=== PATIENT | male | born 1995 | race Caucasian/White ===

== ENCOUNTER 2016-05-19 20:47 | Emergency (ER) | payer BC, MEDICAID ==
[~2016-05-19] VITALS: Ht 182.9 cm; Wt 105.9 kg
[2016-05-19] MEDS ORDERED: KETOROLAC 60 MG/2 ML (TORADOL) VIAL IM ONE (22:10)
[2016-05-19 23:17] VITALS: BP 114/51
== END 2016-05-19 23:18 | disposition home or self-care (01) ==
LOC: ED 20:48
DX: J02.9 Acute pharyngitis, unspecified (principal)
CPT/HCPCS: 87070; 87651; 96372; 99283; J1885; 99282

== ENCOUNTER → 2016-06-06 | Outpatient (CLI) | payer BC, MEDICAID | LOC: EMS 21:26 | PROVIDERS: ATTEND Emergency Medicine | DX: S81.811A Laceration without foreign body, right lower leg, initial encounter (principal); W25.XXXA Contact with sharp glass, initial encounter; Y92.211 Elementary school as the place of occurrence of the external cause; R56.9 Unspecified convulsions ==

== ENCOUNTER 2016-06-08 05:13 | Emergency (ER) | payer BC, MEDICAID ==
[~2016-06-08] VITALS: Ht 182.9 cm; Wt 104.5 kg
[2016-06-08 05:15] VITALS: BP 124/74
== END 2016-06-08 05:38 | disposition home or self-care (01) ==
LOC: ED 05:19
DX: S81.811D Laceration without foreign body, right lower leg, subsequent encounter (principal); W25.XXXD Contact with sharp glass, subsequent encounter; Z48.01 Encounter for change or removal of surgical wound dressing
CPT/HCPCS: 99282

== ENCOUNTER 2016-06-15 13:49 | Emergency (ER) | payer BC, MEDICAID ==
[~2016-06-15] VITALS: Ht 200.7 cm; Wt 104.6 kg
[2016-06-15] MEDS ORDERED: VANCOMYCIN 1,000 MG in SODIUM CHLORIDE 250 ML IV ONE (15:10)
[2016-06-15 15:34] LABS: BASOPHILS % (AUTO) 0 % (0-2); EOSINOPHILS # (AUTO) 0.3 10^3uL; EOSINOPHILS % (AUTO) 3 % (0-4); LYMPHOCYTES # (AUTO) 2.4 X10^3; MEAN CORPUSCULAR HEMOGLOBIN 29.4 PG (26.0-34.0); MEAN CORPUSCULAR HGB CONC 34.6 g/dL (31.0-37.0); MEAN CORPUSCULAR VOLUME 85 FL (80-100); MEAN PLATELET VOLUME 10.5 FL (6.0-9.5); MONOCYTES # (AUTO) 1.1 X10^3; MONOCYTES % (AUTO) 11 % (3-11); NEUTROPHILS # (AUTO) 6.3 X10^3; NEUTROPHILS % (AUTO) 62 % (51-67); PLATELET COUNT 259 10^3uL (150-450); WHITE BLOOD COUNT 10.16 10^3uL (4.0-11.0)
[2016-06-15 15:47] LABS: ALBUMIN 4.2 g/dL (3.4-5.0); ANION GAP 14.1 MEQ/L (3-15); CALCULATED IONIZED CALCIUM 3.6 mg/dL (3.8-4.6); TOTAL PROTEIN 8.3 g/dL (6.4-8.5)
--- NOTE | 2016-06-15 17:09 | NUR ---
Wound borders right leg have been circled with skin marking pen.
[2016-06-15 18:16] VITALS: BP 114/34
== END 2016-06-15 18:10 | disposition home or self-care (01) ==
LOC: EDUNIT# 13:49 → ED 13:51
DX: S71.111A Laceration without foreign body, right thigh, initial encounter (principal); S81.811A Laceration without foreign body, right lower leg, initial encounter; L03.115 Cellulitis of right lower limb; W22.09XA Striking against other stationary object, initial encounter
CPT/HCPCS: 36415; 80053; 85025; 96365; 96366; 99283; J3370; J7050

== ENCOUNTER → 2016-06-17 | Outpatient (REF) ==
[~2016-06-17] MED LIST: ACET1TAB43 PO; ACET325T38 PO; ACET600C PO; ACET600C5 PO; ADV250-14 IH; ALBU2.5V4 IH; ALBU8.5H4 IH; ALBU8.5H6 IH; ALLERGY SHOT; ALLERY SHOTS; ARIP15TA3 PO; ATOM40CA PO; BENZ1LOZ MM; BISM262O27 PO; BUPR300T51 PO; CALADRYL TOP; CETI-262 PO; CETI10CA PO; CHLO118L TP; CLN.1T PO; CLON1PAT16 TD; CORTAID TOP; CYPR4TAB PO; DILT120T PO; DIPH50CA PO; DIPH50CA33 PO; DIPH50TA PO; DLT30T PO; DORN1SOL IH; DVL500TSR PO; EPI-PEN; EPIN0.3P2 IM; FLUT1DIS3 IH; FLUT1DIS3 INH; FLUT1DIS4 IH; FLUV100T3 PO; FLUV150C2 PO; FLUV25TA3 PO; FLVX50T PO; GUAI5SYR PO; GUAN1TAB17 PO; GUAN2TAB PO; GUAN4TAB2 PO; HLP5T PO; HYDR453. TOP; HYDR50CA PO; IBP800T PO; IBUP-793 PO; IBUP200C PO; LAMO25TA PO; LEVE10006 PO; LEVE250T18 PO; LEVE500T6 PO; LIPA1CAP67 PO; LISD70CA PO; MAG30ORA2 PO; MAGN400O7 PO; MAGN800O PO; MELA1TAB19 PO; MINO100C2 PO; MNTL10T PO; MONT10TA21 PO; NF-FLON16G NS; NF-FLON16G NSEACH; NPB.9O TP; OLAN10TA3 PO; OMEP20CA12; OMEP20TA33 PO; OMEP40CA36 PO; PANT40SU PO; PANT40TA3 PO; POLY255P PO; PRED10TA PO; PRED1TAB PO; QTP100T PO; QUET200T PO; QUET200T2 PO; QUET200T28 PO; QUET300T2 PO; SMV10T PO; SULF1TAB35 PO; TINACTIN TOP; TR1C15 TOP; TRAZ-28 PO; TRAZ100T92 PO; URSO250T11 PO; URSO300C3 PO; [UNRECOGNIZED DRUG - CODE] IJ; [UNRECOGNIZED DRUG - CODE] TP; [UNRECOGNIZED DRUG - OTHER]; unknown meds
[2016-06-17 17:18] LABS: HEPATITIS B SURFACE ANTIGEN C Negative
== END ==
LOC: LAB 12:01
PROVIDERS: ATTEND Internal Medicine
DX: Z77.21 Contact with and (suspected) exposure to potentially hazardous body fluids (principal)
CPT/HCPCS: 86803; 87340

== ENCOUNTER 2016-07-14 22:18 | Emergency (ER) | payer BC, MEDICAID ==
[~2016-07-14] VITALS: Ht 182.9 cm; Wt 104.5 kg
--- OUTSIDE RECORDS SUMMARY | 2016-07-14 22:22 | XMS REPORT | Continuity of Care Document ---
Author Author Keyanna Moreno Keyanna Address Unknown Phone Unavailable Care Team Providers Care Nurses' Aide Name Role Phone [employer] Unavailable Unavailable Problems Medications Allergies, Adverse Reactions, Alerts Immunizations Results Vital Signs Encounters Procedures Plan of Care Social History Assessment and Plan Family History Value Date Source Advance Directives Order Name Results Value Date Source
--- OUTSIDE RECORDS SUMMARY | 2016-07-14 22:23 | XMS REPORT | Continuity of Care Document ---
Author Author Keyanna Moreno Keyanna Address Unknown Phone Unavailable Care Team Providers Care Igniter Capper Name Role Phone [employer] Unavailable Unavailable Problems Medications Allergies, Adverse Reactions, Alerts Immunizations Results Vital Signs Encounters Procedures Plan of Care Social History Assessment and Plan Family History Value Date Source Advance Directives Order Name Results Value Date Source
[2016-07-14 22:29] VITALS: BP 127/75
[2016-07-14] MEDS ORDERED: CETI10TA20 PO (22:41)
== END 2016-07-14 22:56 | disposition home or self-care (01) ==
LOC: ED 22:19
DX: S00.03XA Contusion of scalp, initial encounter (principal); W22.09XA Striking against other stationary object, initial encounter; Y93.89 Activity, other specified; Y92.009 Unspecified place in unspecified non-institutional (private) residence as the place of occurrence of the external cause
CPT/HCPCS: 99281; 99282

== ENCOUNTER 2016-07-20 21:08 | Emergency (ER) | payer BC, MEDICAID ==
[~2016-07-20] VITALS: Ht 200.7 cm; Wt 111.4 kg
[2016-07-20] MEDS ORDERED: LORazepam 2 MG/ML (ATIVAN) 1 ML VIAL IV ONE (21:10)
[2016-07-20] MEDS ORDERED: SODIUM CHLORIDE FLUSH 10 ML SYR ONE (21:10)
--- OUTSIDE RECORDS SUMMARY | 2016-07-20 21:14 | XMS REPORT | Continuity of Care Document ---
Author Author Keyanna Moreno Keyanna Address Unknown Phone Unavailable Care Team Providers Care Division Road Supervisor Name Role Phone [employer] Unavailable Unavailable Problems Medications Allergies, Adverse Reactions, Alerts Immunizations Results Vital Signs Encounters Procedures Plan of Care Social History Assessment and Plan Family History Value Date Source Advance Directives Order Name Results Value Date Source
[2016-07-20] MEDS ORDERED: diphenhydrAMINE 50 MG/ML INJ (BENADRYL) IV ONE (21:15)
[2016-07-20] MEDS ORDERED: DEXAMETHASONE 4 MG/ML (DECADRON) 5ml VIAL IV ONE (21:15)
[2016-07-20] MEDS ORDERED: FAMOTIDINE IV 20 MG in SODIUM CHLORIDE VIAL (PF) 10 ML IV ONE (21:15)
--- NOTE | 2016-07-20 21:20 | NUR ---
ABHISHEK GARCIA AND ASHISH IN PTS ROOM AND PT HAD A SEIZURE LASTED APPROX 25 SECONDS. WAS THRASHING IN BED SEIZURE GENERALIZED AND GRAND MAL
[2016-07-20] MEDS ORDERED: SODIUM CHLORIDE FLUSH 3 ML SYR IV ONE (21:35)
[2016-07-20] MEDS ORDERED: SODIUM CHLORIDE FLUSH 10 ML SYR IV PRN (21:35)
[2016-07-20 21:57] LABS: BASOPHILS % (AUTO) 0 % (0-2); EOSINOPHILS # (AUTO) 0.3 10^3uL; EOSINOPHILS % (AUTO) 3 % (0-4); LYMPHOCYTES # (AUTO) 1.9 X10^3; MEAN CORPUSCULAR HEMOGLOBIN 29.6 PG (26.0-34.0); MEAN CORPUSCULAR HGB CONC 34.4 g/dL (31.0-37.0); MEAN CORPUSCULAR VOLUME 86 FL (80-100); MEAN PLATELET VOLUME 10.1 FL (6.0-9.5); MONOCYTES % (AUTO) 9 % (3-11); NEUTROPHILS # (AUTO) 7.9 X10^3; NEUTROPHILS % (AUTO) 71 % (51-67); PLATELET COUNT 263 10^3uL (150-450); WHITE BLOOD COUNT 11.18 10^3uL (4.0-11.0)
--- NOTE | 2016-07-20 21:58 | NUR ---
PT TOOK B/P CUFF OFF SAID IT WAS AGGITATING HIS ITCH.
[2016-07-20 22:01] LABS: BILIRUBIN,URINE Negative (Negative); CLARITY,URINE Clear; COLOR,URINE Yellow; GLUCOSE, URINE (UA) Negative (Negative); LEUKOCYTE ESTERASE ,URINE Negative (Negative); PH,URINE 5.5 (5.0 - 8.0); UROBILINOGEN,URINE 0.2 mg/dL (0.2-1.0)
[2016-07-20 22:03] LABS: ALBUMIN 4.2 g/dL (3.4-5.0); ANION GAP 17.5 MEQ/L (3-15); CALCULATED IONIZED CALCIUM 3.7 mg/dL (3.8-4.6); TOTAL PROTEIN 7.9 g/dL (6.4-8.5)
[2016-07-20 22:11] LABS: URINE CENTRIFUGED VOLUME 12 mL
[2016-07-20 22:12] LABS: AMORPHOUS SEDIMENT,UR 1+ /HPF; RBC,URINE 0-2 /HPF
--- NOTE | 2016-07-20 22:14 | NUR ---
PER PATIENT AND PATIENTS PARENTS THEY ARE CONCERNED ABOUT HIM RETURNING TO HOME D/T SEIZURE ACTIVITY. HE HAS NO ONE TO STAY WITH HIM. [facility] HAS HELP FROM [facility] 0800 TO 2300 AT NIGHT ONLY. THEY ARE REQUESTING THAT WE KEEP PATIENT IN HOSPITAL FOR OBSERVATION
[2016-07-20 22:40] VITALS: BP 97/68
== END 2016-07-20 22:41 | disposition home or self-care (01) ==
LOC: EDUNIT# 21:08 → ED 21:09
DX: T36.95XA Adverse effect of unspecified systemic antibiotic, initial encounter (principal); G40.89 Other seizures; Y92.310 Basketball court as the place of occurrence of the external cause; J32.4 Chronic pansinusitis
CPT/HCPCS: 36415; 80053; 81003; 81015; 85025; 96361; 96374; 96375; 99284; J1100; J1200; J2060; J3490; J7030; J7050; 99282

== ENCOUNTER → 2016-07-20 | Outpatient (CLI) | payer BC, MEDICAID ==
[~2016-07-20] MED LIST changes: +CETI10TA20 PO
== END ==
LOC: EMS 21:17
PROVIDERS: ATTEND Emergency Medicine
DX: R56.9 Unspecified convulsions (principal)

== ENCOUNTER 2016-07-21 18:17 | Emergency (ER) | payer BC, MEDICAID ==
[~2016-07-21] VITALS: Ht 170.2 cm; Wt 104.5 kg
--- OUTSIDE RECORDS SUMMARY | 2016-07-21 18:23 | XMS REPORT | Continuity of Care Document ---
Author Author Keyanna Moreno Keyanna Address Unknown Phone Unavailable Care Team Providers Care Chemistry Professor Name Role Phone [employer] Unavailable Unavailable Problems Medications Allergies, Adverse Reactions, Alerts Immunizations Results Vital Signs Encounters Procedures Plan of Care Social History Assessment and Plan Family History Value Date Source Advance Directives Order Name Results Value Date Source
--- OUTSIDE RECORDS SUMMARY | 2016-07-21 18:24 | XMS REPORT | Continuity of Care Document ---
Author Author Keyanna Moreno Keyanna Address Unknown Phone Unavailable Care Team Providers Care Furnace Repairer Helper Name Role Phone [employer] Unavailable Unavailable Problems Medications Allergies, Adverse Reactions, Alerts Immunizations Results Vital Signs Encounters Procedures Plan of Care Social History Assessment and Plan Family History Value Date Source Advance Directives Order Name Results Value Date Source
[2016-07-21] MEDS ORDERED: LORazepam 2 MG/ML (ATIVAN) 1 ML VIAL IM ONE (19:35)
[2016-07-21 19:42] LABS: BASOPHILS % (AUTO) 0 % (0-2); EOSINOPHILS % (AUTO) 0 % (0-4); LYMPHOCYTES # (AUTO) 1.2 X10^3; MEAN CORPUSCULAR HEMOGLOBIN 29.4 PG (26.0-34.0); MEAN CORPUSCULAR HGB CONC 34.1 g/dL (31.0-37.0); MEAN CORPUSCULAR VOLUME 86 FL (80-100); MONOCYTES # (AUTO) 0.7 X10^3; MONOCYTES % (AUTO) 6 % (3-11); NEUTROPHILS # (AUTO) 10.7 X10^3; NEUTROPHILS % (AUTO) 84 % (51-67); PLATELET COUNT 308 10^3uL (150-450); WHITE BLOOD COUNT 12.63 10^3uL (4.0-11.0)
[2016-07-21 19:49] LABS: ALBUMIN 4.4 g/dL (3.4-5.0); CALCULATED IONIZED CALCIUM 3.7 mg/dL (3.8-4.6); TOTAL PROTEIN 8.6 g/dL (6.4-8.5)
--- NOTE | 2016-07-21 20:42 | NUR ---
Pt has gone to the restroom twice and did not give me a sample either time. Reported to Dr. Lomas.
[2016-07-21 20:43] VITALS: BP 108/81
--- NOTE | 2016-07-22 06:39 | Diagnostic Imaging Report ---
PROCEDURE: CT head without contrast. TECHNIQUE: Multiple contiguous axial images were obtained through the brain without the use of intravenous contrast. INDICATION: Seizures. COMPARISON STUDY: CT scan of the head from 09/02/15. FINDINGS: Noncontrast CT scan of the head demonstrates no mass effect, midline shift, hemorrhage or extra-axial fluid collections. Small-white matter differentiation is normal. Bone windows demonstrate no evidence of fracture. The mastoid air cells are clear. The ethmoid and frontal and visualized portions of the sphenoid sinus may opacified. Maxillary sinuses are not included. IMPRESSION: 1. Normal intracranial contents. 2. Persistent pansinusitis. Dictated by: Dictated on workstation # [id number]
[2016-07-24 14:56] LABS: LEVETIRACETAM LEVEL 8.1 mcg/mL
== END 2016-07-21 20:44 | disposition home or self-care (01) ==
LOC: ED 18:17
DX: G40.89 Other seizures (principal); R21 Rash and other nonspecific skin eruption; J32.4 Chronic pansinusitis
CPT/HCPCS: 36415; 70450; 80053; 80177; 84146; 85025; 86140; 96372; 99284; J2060

== ENCOUNTER 2016-07-21 21:51 | Emergency (ER) | payer BC, MEDICAID ==
[~2016-07-21] VITALS: Ht 170.2 cm; Wt 104.5 kg
--- OUTSIDE RECORDS SUMMARY | 2016-07-21 21:56 | XMS REPORT | Continuity of Care Document ---
Author Author Keyanna Moreno Keyanna Address Unknown Phone Unavailable Care Team Providers Care Reimbursement Manager Name Role Phone [employer] Unavailable Unavailable Problems Medications Allergies, Adverse Reactions, Alerts Immunizations Results Vital Signs Encounters Procedures Plan of Care Social History Assessment and Plan Family History Value Date Source Advance Directives Order Name Results Value Date Source
--- OUTSIDE RECORDS SUMMARY | 2016-07-21 21:56 | XMS REPORT | Continuity of Care Document ---
Author Author Keyanna Moreno Keyanna Address Unknown Phone Unavailable Care Team Providers Care Delicatessen Store Manager Name Role Phone [employer] Unavailable Unavailable Problems Medications Allergies, Adverse Reactions, Alerts Immunizations Results Vital Signs Encounters Procedures Plan of Care Social History Assessment and Plan Family History Value Date Source Advance Directives Order Name Results Value Date Source
[2016-07-21] MEDS ORDERED: HALOPERIDOL 5 MG/ML (HALDOL) 1 ML AMP ONE (22:13)
[2016-07-21] MEDS ORDERED: HALOPERIDOL 5 MG/ML (HALDOL) 1 ML AMP IM ONE (22:15)
[2016-07-21] MEDS ORDERED: LORazepam 2 MG/ML (ATIVAN) 1 ML VIAL ONE (22:45)
[2016-07-21] MEDS ORDERED: LORazepam 2 MG/ML (ATIVAN) 1 ML VIAL IV ONE (22:45)
[2016-07-21 22:51] LABS: BILIRUBIN,URINE Negative (Negative); CLARITY,URINE Clear; COLOR,URINE Yellow; GLUCOSE, URINE (UA) Negative (Negative); LEUKOCYTE ESTERASE ,URINE Negative (Negative); UROBILINOGEN,URINE 0.2 mg/dL (0.2-1.0)
--- NOTE | 2016-07-21 22:56 | NUR ---
Spoke with Officer Redd who was first on scene with the pt. Officer states that pt states that "subject was fearful and was not able to recognize anyone around him. Subject states that he would stab the other people around him as he didn't know who they were." Officer Redd felt as though the pt was "acting out of fear". Pt is now answering questions and has given a urine specimen but refuses to keep on his BP cuff or Pulse Oximeter. He is VERY restless and anxious, however, he does not feel that anyone is trying to hurt him any longer. There was a short period of time when he got very anxious because he thought we were going to take him to [facility] because he didn't know where he was. He stated, "I know my rights. I want my supervisor [employer]mill." His mother was able to calm him down afterwards.
[2016-07-21 23:11] LABS: AMPHETAMINE SCREEN, URINE Negative (Negative); CANNABINOID SCREEN, URINE Negative (Negative); METHAMPHETAMINE SCREEN URINE S NEGATIVE (NEGATIVE); OPIATE SCREEN URINE Negative (Negative); PROPOXYPHENE STAT NEGATIVE (NEGATIVE); URINE CENTRIFUGED VOLUME 12 mL
[2016-07-21 23:17] LABS: RBC,URINE None Seen /HPF
--- NOTE | 2016-07-21 23:43 | NUR ---
Pt is now sleeping in his room.
--- NOTE | 2016-07-22 00:11 | NUR ---
Pt's family refused to allow Dr. Lomas to consult with mental health about the pts condition. They would like to follow up with Dr. Griggs tomorrow and get in to see the pts neurologist later on. Parents do not feel that [facility] would be able to do anything to help him at this time. (Per Dr. Lomas)
[2016-07-22 00:14] VITALS: BP 128/70
== END 2016-07-22 00:10 | disposition home or self-care (01) ==
LOC: ED 21:52
DX: G40.89 Other seizures (principal); R41.0 Disorientation, unspecified; R21 Rash and other nonspecific skin eruption; J32.4 Chronic pansinusitis; Z79.899 Other long term (current) drug therapy
CPT/HCPCS: 36415; 80307; 80320; 80329; 81003; 81015; 96372; 96374; 99284; J1630; J2060; 99282

== ENCOUNTER → 2016-07-21 | Outpatient (CLI) | payer BC, MEDICAID | LOC: EMS 21:45 | DX: Z53.20 Procedure and treatment not carried out because of patient's decision for unspecified reasons (principal) ==

== ENCOUNTER 2016-08-02 10:17 | Emergency (ER) | payer BC, MEDICAID ==
[~2016-08-02] VITALS: Ht 182.9 cm; Wt 104.5 kg
--- NOTE | 2016-08-02 10:20 | NUR ---
PATIENT SEEN IN TRIAGE ROOM, INITIAL HX, VITAL SIGNS, ALLERGIES, ETC OBTAINED. PT REPORT (ORAL AND WRITTEN) TO Argenis LAYTON RN UPON PT BEING BROUGHT TO [facility].
--- OUTSIDE RECORDS SUMMARY | 2016-08-02 10:25 | XMS REPORT | Continuity of Care Document ---
Author Author Keyanna Moreno Keyanna Address Unknown Phone Unavailable Care Team Providers Care Grade Teacher Name Role Phone [employer] Unavailable Unavailable Problems Medications Allergies, Adverse Reactions, Alerts Immunizations Results Vital Signs Encounters Procedures Plan of Care Social History Assessment and Plan Family History Value Date Source Advance Directives Order Name Results Value Date Source
[2016-08-02] MEDS ORDERED: HYDROmorphone 2 MG/ML (DILAUDID) 1 ML SYRINGE IM ONE (11:20)
[2016-08-02] MEDS ORDERED: PROMETHAZINE 25 MG/ML (PHENERGAN) 1 ML VIAL IM ONE (11:20)
[2016-08-02 12:17] LABS: BASOPHILS % (AUTO) 0 % (0-2); EOSINOPHILS # (AUTO) 0.2 10^3uL; EOSINOPHILS % (AUTO) 2 % (0-4); MEAN CORPUSCULAR HEMOGLOBIN 29.5 PG (26.0-34.0); MEAN CORPUSCULAR HGB CONC 34.3 g/dL (31.0-37.0); MEAN CORPUSCULAR VOLUME 86 FL (80-100); MEAN PLATELET VOLUME 10.2 FL (6.0-9.5); MONOCYTES # (AUTO) 1.1 X10^3; MONOCYTES % (AUTO) 11 % (3-11); NEUTROPHILS # (AUTO) 6.6 X10^3; NEUTROPHILS % (AUTO) 66 % (51-67); PLATELET COUNT 280 10^3uL (150-450); WHITE BLOOD COUNT 9.98 10^3uL (4.0-11.0)
[2016-08-02 12:26] LABS: ALBUMIN 4.5 g/dL (3.4-5.0); ANION GAP 16.5 MEQ/L (3-15); CALCULATED IONIZED CALCIUM 3.7 mg/dL (3.8-4.6); TOTAL PROTEIN 8.7 g/dL (6.4-8.5)
[2016-08-02 12:30] LABS: BILIRUBIN,URINE Negative (Negative); CLARITY,URINE Clear; COLOR,URINE Yellow; GLUCOSE, URINE (UA) Negative (Negative); LEUKOCYTE ESTERASE ,URINE Negative (Negative); UROBILINOGEN,URINE 0.2 mg/dL (0.2-1.0)
--- NOTE | 2016-08-02 13:09 | Diagnostic Imaging Report ---
INDICATION: Diffuse abdominal pain. Nausea. COMPARISON: 02/04/2016 and 07/21/2013 FINDINGS: Supine and upright views of the abdomen show a nondistended bowel gas pattern. No abnormal air fluid levels or free intraperitoneal air is seen. No abnormal extraosseous calcifications are seen. Bony and soft tissue structures are within normal limits. No organomegaly is identified. Accompanying upright chest shows patchy perihilar opacities on the right. Lungs also show low respiratory volumes. There is no large effusion or pneumothorax. Bony structures show no gross acute abnormality. IMPRESSION: 1. No bowel obstruction or free air. 2. Patchy perihilar opacities on the right. This appears to be a chronic process when compared to prior studies (particularly a chest radiograph dated 07/21/2013) and may be related to patient's clinical history of bronchopulmonary aspergillosis. Dictated by: Dictated on workstation # [id number]
[2016-08-02 13:29] VITALS: BP 123/81
== END 2016-08-02 13:28 | disposition home or self-care (01) ==
LOC: EDUNIT# 10:17 → ED 10:19
DX: S06.0X0A Concussion without loss of consciousness, initial encounter (principal); K86.1 Other chronic pancreatitis; W01.198A Fall on same level from slipping, tripping and stumbling with subsequent striking against other object, initial encounter; Y93.E1 Activity, personal bathing and showering; Y92.002 Bathroom of unspecified non-institutional (private) residence as the place of occurrence of the external cause
CPT/HCPCS: 36415; 74022; 80053; 81003; 82150; 83690; 85025; 86140; 96372; 99282; J1170; J2550